=== PATIENT | female | born 1930 | race Caucasian/White ===

== ENCOUNTER 2021-02-02 04:56 | Day surgery (SDC) | payer OTHER, MEDICARE ==
[2021-02-01 09:01] VITALS: BMI 22.8
[2021-02-02] MEDS ORDERED: LIDOCAINE HCL/PF 1% SDV 5ML VIAL ONE (07:17)
[2021-02-02] MEDS ORDERED: TRIAMCINOLONE ACET 40MG/1ML VIAL ONE (07:17)
[2021-02-02] MEDS ORDERED: BUPIVACAINE HCL/PF 0.5% (5MG/ML) 10 ML VIAL ONE (07:17)
[2021-02-02] MEDS ORDERED: SODIUM CHLORIDE 0.9% P/F 10 ML VIAL IJ ONE (10:28)
[2021-02-02] MEDS ORDERED: DEXAMETHASONE SOD PHOSPHATE 10 MG/1 ML VIAL ONE (10:29)
[2021-02-02] MEDS ORDERED: LIDOCAINE 1% P/F 10 MG/ML VIAL INF ONE (10:35)
[2021-02-02 11:08] VITALS: PULSE 80; TEMP 97.9
[2021-02-02 11:41] VITALS: BP 170/80
== END 2021-02-02 11:30 | disposition home or self-care (01) ==
LOC: JASU-SURG 04:56
PROVIDERS: ATTEND Pain Medicine Pain Medicine
PROC: 3E0R33Z Introduction of Anti-inflammatory into Spinal Canal, Percutaneous Approach (ICD-10-PCS; 2021-02-02)
PROC: 3E0R3BZ Introduction of Anesthetic Agent into Spinal Canal, Percutaneous Approach (ICD-10-PCS; principal; 2021-02-02 09:45)
DX: M54.16 Radiculopathy, lumbar region (principal)
CPT/HCPCS: 76000-TC-FY; J1100